=== PATIENT | female | born 1960 | race Two or more races ===

== ENCOUNTER 2020-03-14 16:52 | Emergency (ER) | payer OTHER ==
[~2020-03-14] VITALS: Ht 157.5 cm; Wt 84.4 kg
[2020-03-14] MEDS ORDERED: LOTREL 5-20 MG1 CAP PO (17:44)
[2020-03-14] MEDS ORDERED: LIPITOR20 MG PO (17:45)
[2020-03-14] MEDS ORDERED: LOTREL 5-10 MG1 CAP (17:45)
[2020-03-14] MEDS ORDERED: SYNTHROID112 MCG PO (17:45)
[2020-03-14] MEDS ORDERED: VITAMIN D310 MCG/1 M PO (17:46)
[2020-03-14] MEDS ORDERED: LEXAPRO20 MG PO (17:46)
[2020-03-14] MEDS ORDERED: CENTRUM COMPLE1 EACH PO (17:46)
[2020-03-14] MEDS ORDERED: RESTORIL30 M1 PO (17:46)
[2020-03-14] MEDS ORDERED: CALTRATE 600+D1 EAC1 PO (17:47)
[2020-03-14] MEDS ORDERED: PREMARIN30 GM VG (17:47)
[2020-03-14] MEDS ORDERED: VITAMIN C WIT1000 MG PO (21:54)
[2020-03-14] MEDS ORDERED: ACETAMINOPHEN650 M2 PO (21:54)
[2020-03-14] MEDS ORDERED: IVERMECTIN3 MG PO (21:54)
[2020-03-14] MEDS ORDERED: ZINC SULFATE220 M2 PO (21:54)
[2020-03-14] MEDS ORDERED: AZITHROMYCIN250 MG PO (21:54)
[2020-03-14] MEDS ORDERED: MELATONIN10 M2 PO (21:54)
== END 2020-03-14 22:05 | disposition home or self-care (01) ==
LOC: ER 16:52
DX: U07.1 COVID-19 (principal); B34.9 Viral infection, unspecified

== ENCOUNTER 2020-03-20 14:35 | Inpatient (IN) | payer OTHER ==
[~2020-03-20] VITALS: Ht 157.5 cm; Wt 80.7 kg
[~2020-03-20 14:35] MED LIST: ACETAMINOPHEN650 M2 PO; AZITHROMYCIN250 MG PO; CALTRATE 600+D1 EAC1 PO; CENTRUM COMPLE1 EACH PO; IVERMECTIN3 MG PO; LEXAPRO20 MG PO; LIPITOR20 MG PO; LOTREL 5-10 MG1 CAP; LOTREL 5-20 MG1 CAP PO; MELATONIN10 M2 PO; PREMARIN30 GM VG; RESTORIL30 M1 PO; SYNTHROID112 MCG PO; VITAMIN C WIT1000 MG PO; VITAMIN D310 MCG/1 M PO; ZINC SULFATE220 M2 PO
== END 2020-03-31 20:40 | disposition home or self-care (01) | DRG 177 ==
LOC: ER 14:35 → MEDJ 20:01
PROVIDERS: ADMIT Internal Medicine; ATTEND Internal Medicine
PROC: 4A033R1 Measurement of Arterial Saturation, Peripheral, Percutaneous Approach (ICD-10-PCS; principal; 2020-03-20)
PROC: XW033E5 Introduction of Remdesivir Anti-infective into Peripheral Vein, Percutaneous Approach, New Technology Group 5 (ICD-10-PCS; 2020-03-20)
PROC: XW0DXM6 Introduction of Baricitinib into Mouth and Pharynx, External Approach, New Technology Group 6 (ICD-10-PCS; 2020-03-20)
PROC: 8E0ZXY6 Isolation (ICD-10-PCS; 2020-03-20)
PROC: CB2YYZZ Tomographic (Tomo) Nuclear Medicine Imaging of Respiratory System using Other Radionuclide (ICD-10-PCS; 2020-03-20)
PROC: 3E0F7SF Introduction of Other Gas into Respiratory Tract, Via Natural or Artificial Opening (ICD-10-PCS; 2020-03-20)
PROC: B24BZZZ Ultrasonography of Heart with Aorta (ICD-10-PCS; 2020-03-21)
PROC: 4A12X4Z Monitoring of Cardiac Electrical Activity, External Approach (ICD-10-PCS; 2020-03-21)
DX: U07.1 COVID-19 (principal); J12.82 Pneumonia due to coronavirus disease 2019; I10 Essential (primary) hypertension; E11.9 Type 2 diabetes mellitus without complications; E03.9 Hypothyroidism, unspecified; R09.02 Hypoxemia; J44.9 Chronic obstructive pulmonary disease, unspecified; Z20.822 Contact with and (suspected) exposure to COVID-19; E86.0 Dehydration

== ENCOUNTER 2021-03-19 06:00 | Day surgery (SDC) | payer OTHER ==
[~2021-03-19 06:00] MED LIST changes: +CLONAZEPAM1 MG PO
[2021-03-19] MEDS ORDERED: ACETAMINOPHEN-1 EAC2 PO (09:09)
[2021-03-19] MEDS ORDERED: MACROBID 100 M100 MG PO (09:09)
== END 2021-03-19 13:50 | disposition home or self-care (01) ==
LOC: CIR.AMB 06:00
PROVIDERS: ATTEND Obstetrics & Gynecology Gynecology
DX: N81.11 Cystocele, midline (principal); N81.5 Vaginal enterocele; Z20.822 Contact with and (suspected) exposure to COVID-19

== ENCOUNTER 2023-03-26 11:53 | Outpatient (CLI) | payer OTHER ==
[~2023-03-26 11:53] MED LIST changes: +ACETAMINOPHEN-1 EAC2 PO; +MACROBID 100 M100 MG PO
== END 2023-03-26 12:01 | disposition home or self-care (01) ==
LOC: SONOGRAMA 11:53
PROVIDERS: ATTEND Pathology Anatomic Pathology & Clinical Pathology
DX: C73 Malignant neoplasm of thyroid gland (principal)